=== PATIENT | female | born 1970 | race Caucasian/White ===

== ENCOUNTER → 2023-10-31 15:07 | Outpatient (REF) | payer BC, SELFPAY | LOC: WDC 15:07 | PROVIDERS: ATTENDING PHYSICIAN Physician Assistant Medical; REFERRING PHYSICIAN Internal Medicine Hematology & Oncology | DX: Z12.31 Encounter for screening mammogram for malignant neoplasm of breast (principal) | CPT/HCPCS: 77063; 77067 ==

== ENCOUNTER → 2023-11-06 10:23 | Outpatient (REF) | payer BC, SELFPAY | LOC: WDC 10:23 | PROVIDERS: ATTENDING PHYSICIAN Physician Assistant Medical | DX: R92.8 Other abnormal and inconclusive findings on diagnostic imaging of breast (principal) | CPT/HCPCS: 76642 ==

== ENCOUNTER 2024-11-09 13:54 | Emergency (ER) | payer BC, SELFPAY ==
[2024-11-09 13:58] VITALS: BP 125/91
[2024-11-09 16:57] VITALS: BP 136/74
--- NOTE | 2024-11-09 17:27 | ED.GENMED ---
History of Present Illness
General
Chief Complaint: Head Injury
Source: patient
Exam Limitations: none
Time Seen by Provider: 11/09/24 17:06
Nursing documentation reviewed up to this point in time: agreed with
History of Present Illness
History of Present Illness:
Patient to ED for eval of swelling to right upper eyelid. She fell on Saturday, hit right right forehead and right side of face on pavement. Sustained a superfical abrasion to both sites. No LOC. Woke this AM and noted swelling and discoration to
her right upper eyelid. Brought to ED by spouse for eval. Dx with stage IV lung CA with brain mets in 2017. Has had full brain radiation in past. Continues with MRI to brain q3mos. She denies headache, dizziness.
Past History
Past History
ED Past Medical History: Cancer (Lung CA with brain mets diagnosed in 2017)
Review of Systems
Review of Systems
Allergies reviewed?: Yes
All Other Systems: ROS reviewed and negative except as documented in HPI and ROS
Constitutional: Reports no symptoms
EENT: Reports no symptoms
Musculoskeletal: Reports no symptoms
Skin: Reports other (abrasion to right forehead, right side of face. Bruising to forehead and right upper eyelid)
Neurological: Reports no symptoms
Psychiatric: Reports no symptoms
Phy Exam
General Physical Exam
General Presentation: well appearing and no apparent distress
General age: appears stated age
General Skin: warm and dry
General Habitus: normal
General Mental: alert
Eye Exam
Eye Exam: PERRL, EOMI, conjunctiva normal and globe normal
Neurological Exam
Neurological Exam: alert, oriented x3, CN II-XII intact, no motor deficits, no sensory deficits and speech normal
Musculoskeletal Exam
Musculoskeletal Exam: full ROM and neuro vasc intact
Skin Exam
Skin Exam: normal color, warm/dry and other (abrasion and bruising to right forehead. Abrasion to right side of face. Bruising to right upper eyelid)
Psychiatric Exam
Psychiatric Exam: normal mood/affect
Course
Orders/Labs/Results
Orders:
Orders
11/09/24 14:[address] [CT Head W/o Iv Contrast] Urgent
Comment:
Reason For Exam: fall w/head strike
Vital Signs
Initial and Last Documented VS:
Initial Vital Signs
Temp Pulse Resp BP Pulse Ox
98.6 F 90 16 125/91 97
11/09/24 13:58 11/09/24 13:58 11/09/24 13:58 11/09/24 13:58 11/09/24 13:58
Last Documented Vital Signs
Temp Pulse Resp BP Pulse Ox
98.6 F 87 18 136/74 99
11/09/24 13:58 11/09/24 16:57 11/09/24 16:57 11/09/24 16:57 11/09/24 16:57
*Radiology
Radiology exam reviewed: radiology read reviewed
*Pulse Oximetry
Patient hypoxic: no
*Critical Care Note
Total Time (30-74mins, 75-104mins- exclusive of procedures): Not Applicable
Update Note
Update Note:
Patient to ED for eval of rightupper eyelid swelling and discoloration. She fell ant hit right side of face on pavement on Saturday. CT today without acute findings. Report of her MRI from September was reviewed by me. No changes noted. Discoloration
and swelling to right upper eyelid is bruising from forehead. EOMI, PERRL. She remains awake and alert, in no distress. WIll discharge home and she will follow up with PCP in AM
ED Attending Note
-
Portions of this chart may have been created with voice recognition software.� Occasional wrong word or��sound alike� substitutions may have occurred due to the inherent limitations of voice recognition software.
Discharge Plan
Departure
Patient Disposition: Home (Routine Discharge)
Date of Disposition: 11/09/24
Time of Disposition: 17:26
Patient with high blood pressure during this ER visit?: No
Condition: Good
Covid-19: Not Applicable
Discharge Problem:
Head injury, Contusion of face
Instructions: Concussion, Adult (DC), Head Injury in Adults (DC), Contusion (DC)
Referrals:
Esthela Coleman PA [Family Provider] - Follow up in 2-3 days
Interventions
Interventions:
*Risk Screen - Suicide Last Done: 11/09/24 14:01
*Neglect/Abuse Screening Last Done: 11/09/24 14:01
ED- Neurological Assessment Last Done: 11/09/24 16:58
ED-Skin Assessment Last Done: 11/09/24 16:58
Discharge Date and Time
Print Language: THAI
== END 2024-11-09 18:17 | disposition home or self-care (01) ==
LOC: EMR 13:54
PROVIDERS: EMERGENCY PHYSICIAN Student in an Organized Health Care Education/Training Program; FAMILY PHYSICIAN Physician Assistant Medical
DX: S00.83XA Contusion of other part of head, initial encounter (principal); W18.39XA Other fall on same level, initial encounter; C34.90 Malignant neoplasm of unspecified part of unspecified bronchus or lung; C79.31 Secondary malignant neoplasm of brain; Z92.3 Personal history of irradiation
CPT/HCPCS: 99284; 70450

== ENCOUNTER 2025-02-17 16:55 | Emergency (ER) | payer BC, SELFPAY ==
[2025-02-17 17:04] VITALS: BP 130/83
--- NOTE | 2025-02-17 18:54 | ED.GENMED ---
History of Present Illness
General
Chief Complaint: Fall
Time Seen by Provider: 02/17/25 18:42
History of Present Illness
History of Present Illness:
54 female with history of stage IV lung cancer presents to the emergency department for eval ration of right lower that is worse with movement. No hemoptysis. Does not take blood thinners. Posterior rib pain after falling into a funny cabinet
earlier today. She went to urgent care where she was noted to have microscopic hematuria and sent to the ED for further evaluation. She notes a pleuritic pain
Past History
Past History
ED Past Medical History: Cancer (Lung CA with brain mets diagnosed in 2017)
Review of Systems
Review of Systems
Allergies reviewed?: Yes
All Other Systems: ROS reviewed and negative except as documented in HPI and ROS
Phy Exam
Physical Exam
Physical Exam:
GEN: Well appearing, NAD, WDWN
HEENT: Oral mucosa moist, no scleral icterus
Cardiac: Regular rate
Lung: No respiratory distress, no tachypnea, lungs clear to auscultation. Tenderness to the right lower chest wall overlying the 10th, 11th, and 12th ribs, no flail segment
Abdomen: Soft, nontender anteriorly
MSK: No gross deformity or injuries
Skin: Good color, no pallor or jaundice, no rashes
Neuro: AO x3, moves all extremities freely
Psych: Calm, cooperative
Course
Orders/Labs/Results
Orders:
Orders
02/17/25 17:14
Ribs, Right 3 View W/PA Chest [CR Ribs-right 3 Vw W/pa Chest*] Urgent
Comment:
Reason For Exam: pain after a fall
02/17/25 18:53
CT Abd/pel W Iv Cont (trauma) Urgent
Comment:
Reason For Exam: R flank trauma
02/17/25 19:11
Complete Blood Count/No Diff Urgent
Comprehensive Metabolic Panel Urgent
02/17/25 21:56
Lidocaine [Lidocaine 4% Patch] 1 patch TOPICAL NOW STA
Apply Lidocaine patch(s) to:: R flank
Abnormal Lab Results
02/17/25
19:11
MCHC 32.4 L g/dL
(33.0-37.0)
Carbon Dioxide 32 H mmol/L
(22-30)
BUN 20 H mg/dl
(7-17)
AST 44 H U/L
(14-36)
ALT 42 H U/L
(0-35)
Alkaline Phosphatase 146 H U/L
(38-126)
02/17/25 19:11
02/17/25 19:11
Vital Signs
Initial and Last Documented VS:
Initial Vital Signs
Temp Pulse Resp BP Pulse Ox
97.8 F 77 20 130/83 96
02/17/25 17:04 02/17/25 17:04 02/17/25 17:04 02/17/25 17:04 02/17/25 17:04
Last Documented Vital Signs
Temp Pulse Resp BP Pulse Ox
97.8 F 77 20 135/83 99
02/17/25 17:04 02/17/25 17:04 02/17/25 17:04 02/17/25 19:02 02/17/25 20:45
MDM/Problems Addressed
MDM/Problems Addressed:
Imaging obtained to rule out renal injury given the microscopic hematuria from urgent care, study was reassuring however does diagnose multiple rib fractures. She declined opiate pain medications. Discussed supportive care and incentive spirometry
*Pulse Oximetry
SaO2: 96
Oxygen Mode of Delivery: Room air
Patient hypoxic: no
*Critical Care Note
Total Time (30-74mins, 75-104mins- exclusive of procedures): Not Applicable
ED Attending Note
-
Portions of this chart may have been created with voice recognition software.� Occasional wrong word or��sound alike� substitutions may have occurred due to the inherent limitations of voice recognition software.
Discharge Plan
Departure
Patient Disposition: Home (Routine Discharge)
Date of Disposition: 02/17/25
Time of Disposition: 21:57
Patient with high blood pressure during this ER visit?: No
Discharge Problem:
Multiple fractures of ribs
Instructions: Rib fracture or bruised rib - ED (DC)
Referrals:
Esthela Coleman PA [Family Provider, Family Practice]
Interventions
Interventions:
*Risk Screen - Suicide Last Done: 02/17/25 17:04
*General Assessment Last Done: 02/17/25 18:57
*Neglect/Abuse Screening Last Done: 02/17/25 18:57
*ED- Fall Risk Assessment Last Done: 02/17/25 18:57
*ED COVID-19 Vaccine History Last Done: 02/17/25 18:57
ED-Musculoskeletal Assessment Last Done: 02/17/25 18:57
ED- Neurological Assessment Last Done: 02/17/25 18:57
ED-Skin Assessment Last Done: 02/17/25 18:57
Discharge Date and Time
Print Language: MONTENEGRIN
[2025-02-17 18:57] VITALS: BMI 22.1
[2025-02-17 19:02] VITALS: BP 135/83
[2025-02-17 19:41] LABS: Hematocrit 40.8 % (37.0-47.0); Hemoglobin 13.2 g/dL (12.0-16.0); Mean Corp Hgb Conc. 32.4 g/dL (33.0-37.0); Mean Corpuscular Volume 87.6 fL (81.0-99.0); Platelet Count 158 10^3/uL (130-400); Red Cell Dist. Width 13.2 % (11.5-14.5)
[2025-02-17 19:44] LABS: ALT (SGPT) 42 U/L (0-35); AST (SGOT) 44 U/L (14-36); Albumin 3.9 g/dl (3.5-5.0); Alkaline Phosphatase 146 U/L (38-126); Blood Urea Nitrogen 20 mg/dl (7-17); Calcium 9.5 mg/dl (8.4-10.2); Carbon Dioxide 32 mmol/L (22-30); Chloride 106 mmol/L (98-107); Estimated Creatinine Clearance 80 ml/min; Glucose 89 mg/dl (70-99); Potassium 4.1 mmol/L (3.5-5.1); Sodium 140 mmol/L (135-145); Total Protein 6.8 g/dl (6.3-8.2); eGFR > 60.00
[2025-02-17] MEDS: LIDOCAINE 4% PATCH 1 PATCH TOPICAL (21:59)
== END 2025-02-17 22:22 | disposition home or self-care (01) ==
LOC: EMR 16:55
PROVIDERS: Physician Assistant; EMERGENCY PHYSICIAN Emergency Medicine; FAMILY PHYSICIAN Physician Assistant Medical
DX: S22.41XA Multiple fractures of ribs, right side, initial encounter for closed fracture (principal); W01.190A Fall on same level from slipping, tripping and stumbling with subsequent striking against furniture, initial encounter; Z85.118 Personal history of other malignant neoplasm of bronchus and lung; Z85.841 Personal history of malignant neoplasm of brain
CPT/HCPCS: 99284; 71101; 74177; 80053; 85027; Q9967

== ENCOUNTER → 2025-06-22 15:10 | Outpatient (REF) | payer BC, SELFPAY | LOC: WDC 15:10 | PROVIDERS: ATTENDING PHYSICIAN Physician Assistant Medical | DX: Z12.31 Encounter for screening mammogram for malignant neoplasm of breast (principal) | CPT/HCPCS: 77063; 77067 ==